=== PATIENT | female | born 1995 | race African-American/Black ===

== ENCOUNTER 2019-01-22 03:48 | Emergency (ER) | payer OTHER, MEDICAID ==
[~2019-01-22] VITALS: Ht 154.9 cm; Wt 77.1 kg
[2019-01-22 04:54] VITALS: BP 118/57
== END 2019-01-22 04:55 | disposition home or self-care (01) ==
LOC: ER 03:48
DX: S80.212A Abrasion, left knee, initial encounter (principal); I50.9 Heart failure, unspecified; F17.210 Nicotine dependence, cigarettes, uncomplicated; Z88.0 Allergy status to penicillin; Z88.2 Allergy status to sulfonamides; Z88.8 Allergy status to other drugs, medicaments and biological substances; X58.XXXA Exposure to other specified factors, initial encounter; Y93.89 Activity, other specified; Y92.89 Other specified places as the place of occurrence of the external cause; Y99.8 Other external cause status